=== PATIENT | female | born 2000 | race Caucasian/White ===

== ENCOUNTER 2020-07-05 15:36 | Emergency (ER) | payer SELFPAY ==
[~2020-07-05] VITALS: Ht 157.5 cm; Wt 88.9 kg
[2020-07-05 15:40] VITALS: BP 109/69
--- NOTE | 2020-07-05 15:53 | NUR ---
CLEOPATRA Underwood is evaluating patient at bedside.
[2020-07-05] MEDS ORDERED: IBUPROFEN 600 MG TAB PO ONE (15:55)
--- NOTE | 2020-07-05 16:24 | NUR ---
19 Y/O FEMALE BIB SELF C/O PAIN TO LEFT HAND S/P FALL LAST FRIDAY. MINOR SWELLING, NO BRUISING NOTED. SKIN WARM, DRY AND INTACT. PT GRIMACING TO TOUCH. CAP REFILL <2. PT STATES CONSTANT THROBBING PAIN TO LEFT HAND. VSS.
[2020-07-05] MEDS ORDERED: IBUP-2213 PO (16:44)
--- NOTE | 2020-07-05 16:52 | NUR ---
APPLIED WRIST BRACE TO LEFT WRIST WITHOUT ANY ISSUES
[2020-07-05 16:55] VITALS: BP 109/69
== END 2020-07-05 16:55 | disposition home or self-care (01) ==
LOC: MED 15:36
DX: S66.912A Strain of unspecified muscle, fascia and tendon at wrist and hand level, left hand, initial encounter (principal); Z79.1 Long term (current) use of non-steroidal anti-inflammatories (NSAID); V00.131A Fall from skateboard, initial encounter; Y93.51 Activity, roller skating (inline) and skateboarding; Y92.331 Roller skating rink as the place of occurrence of the external cause; Y99.8 Other external cause status
CPT/HCPCS: 73130; 99283